=== PATIENT | female | born 1955 | race Caucasian/White ===

== ENCOUNTER → 2016-12-18 | Outpatient (CLI) | payer OTHER ==
[~2016-12-18] MED LIST: ADVAIR 100-501 EAC1 INH; CALCIUM 500 +1 EAC2 PO; CENTRUM COMPLE1 EACH PO
--- NOTE | ~2016-12-18 | BD1 ---
[facility] A Service of [facility] RADIOLOGY TEXT RESULTS PATIENT: LILIANA SCHUMACHER LOCATION: [facility] : 53 UNIT #: [id number] AGE: [address]: Durga Navarro MD SEX: F ORDER DR: [id number] [address] [address] [id number] O MR#: [id number] Acc #: [id number] NAME: LILIANA SCHUMACHER : 1955 SEX: F STUDY DATE/TIME: 12/18/2016 16:13 UNIT: [facility] ROOM: STUDY DESCRIPTION: Dexa Bone Dens 1+ Site Attending Physician: Durga Navarro M.D. Referring Physician: Durga Navarro M.D. Ordering Physician: Durga Navarro M.D. Primary Care Physician: Durga Navarro M.D. MEDICAL IMAGING REPORT This report is preliminary unless electronic signature is present. EXAM DXA scan 12/18/2016 HISTORY Status post menopause with no hormone replacement therapy. Osteopenia. Family history of osteoporosis in sister. FINDINGS Bone mineral density in the lumbar spine from L1-L4 was 1.077 g/cm2, which is 0.9 standard deviations below the mean when compared to the young adult reference population, which is within the range of normal. This is 0.6 standard deviations above the mean when compared to the age-match population. Bone mineral density in the left femoral neck was 0.72 g/cm2, which is 2.3 standard deviations below the mean when compared to the young adult reference population, which is characteristic of osteopenia. This is 0.9 standard deviations below the mean when compared to the age-match population. Bone mineral density in the right femoral neck was 0.717 g/cm2, which is 2.3 standard deviations below the mean when compared to the young adult reference population, which is characteristic of osteopenia. This is 0.9 standard deviations below the mean when compared to the age-match population. IMPRESSION Bone mineral density in the lumbar spine within the range of normal and within the hips bilaterally characteristic of osteopenia. Dictated by... Juan Carlos Varela M.D. THIS IS AN ELECTRONICALLY VERIFIED REPORT Juan Carlos Varela M.D. at 12/19/2016 8:05 AM [facility] A Service of [facility] RADIOLOGY TEXT RESULTS PATIENT: LILIANA SCHUMACHER LOCATION: [facility] : 53 UNIT #: [id number] AGE: [address]: Durga Navarro MD SEX: F ORDER DR: Rodolfo TD: 12/18/2016 22:04 JOB #: [id number] MEDICAL IMAGING REPORT Page 1 of 1
== END | disposition home or self-care (01) ==
LOC: SRAD 15:43
DX: M85.80 Other specified disorders of bone density and structure, unspecified site (principal); Z78.0 Asymptomatic menopausal state
CPT/HCPCS: 77080